=== PATIENT | male | born 1995 | race African-American/Black ===

== ENCOUNTER 2019-10-17 14:22 | Emergency (ER) | payer SELFPAY ==
[~2019-10-17] VITALS: Ht 180 cm; Wt 82.6 kg
[~2019-10-17 14:22] MED LIST: CEPH500C PO; CPR500T PO; NAPR-243 PO; OXYC-12 PO; TRAM50TA2 PO
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
[2019-10-17] MEDS ORDERED: TRM50T PO (16:16)
[2019-10-17] MEDS ORDERED: TETANUS,DIPTH,PERTUSS P/F (BOOSTRIX) 0.5 ML VIAL IM ONE (16:30)
[2019-10-17 16:38] VITALS: BP 130/88
== END 2019-10-17 16:40 | disposition home or self-care (01) ==
LOC: EDUNIT# 14:22 → ER 14:24
DX: S00.83XA Contusion of other part of head, initial encounter (principal); F17.200 Nicotine dependence, unspecified, uncomplicated; Y04.8XXA Assault by other bodily force, initial encounter
CPT/HCPCS: 70486; 90471; 90715

== ENCOUNTER 2020-04-24 06:28 | Emergency (ER) | payer SELFPAY ==
[~2020-04-24] VITALS: Ht 180 cm; Wt 82.6 kg
[~2020-04-24 06:28] MED LIST changes: +TRM50T PO
--- NOTE | 2020-04-24 06:55 | NUR ---
COVID SWAB OBTAINED BY ERP.
--- NOTE | 2020-04-24 07:15 | ED Cough/URI ---
General Chief Complaint: Cough/Cold/Flu Symptoms Stated Complaint: CHILL, COUGH, SOB, FEVER Nursing Triage Note: C/O FEELING "SICK" X3 DAYS REPORTS FEVER, CHILLS, BODYACHE, SORE THROAT. Sepsis Screen: Possible Severe Sepsis Risk Source: patient Exam Limitations: no limitations History of Present Illness Date Seen by Provider: Apr 24, 2020 Time Seen by Provider: 06:55 Initial Comments Here with report of fevers, chills, body aches, sore throat and diarrhea. Overall feeling sick for the last few days and is concerned about COVID-19. Does not have known exposure although does hang out with friends in different places. Not significantly short of breath but is a bit anxious. Timing/Duration: getting worse, other (3 days) Severity/Quality: mild, dry cough Prior Episodes/Possible Cause: no prior episodes Modifying Factors: Improves With Rest Associated Symptoms: dizziness, fever/chills, nasal congestion, shortness of breath, sore throat Allergies and Home Medications Allergies Coded Allergies: No Known Drug Allergies (Unverified , 06/19/13) Patient Home Medication List Home Medication List Reviewed: Yes Review of Systems Review of Systems Constitutional: see HPI, chills, malaise EENTM: see HPI Respiratory: see HPI Cardiovascular: no symptoms reported Gastrointestinal: No abdominal pain; diarrhea Genitourinary: no symptoms reported Musculoskeletal: see HPI, joint pain, muscle pain Skin: no symptoms reported Psychiatric/Neurological: Anxiety, Other (dizziness) Past Yvhlybt-Orseen-Xyjzgr Hx Past Med/Social Hx: Reviewed Nursing Past Med/Soc Hx Patient Social History Alcohol Use: Occasionally Uses Alcohol Beverage of Choice: Beer Recreational Drug Use: Yes Drug of Choice: CANNIBUS Smoking Status: Current Everyday Smoker Type Used: Cigars 2nd Hand Smoke Exposure: Yes Recent Foreign Travel: No Contact w/Someone Who Travel: No Recent Infectious Disease Expo: No Recent Hopitalizations: No Physical Abuse: No Sexual Abuse: No Mistreated: No Fear: No Immunizations Up To Date Tetanus Booster (TDap): More than 5yrs Seasonal Allergies Seasonal Allergies: Yes Past Medical History Surgeries: Yes (cyst on foot, RIGHT ARM) Orthopedic Respiratory: No Cardiac: No Neurological: No Genitourinary: No Gastrointestinal: No Musculoskeletal: No Endocrine: No HEENT: No Cancer: No Psychosocial: No Integumentary: No Blood Disorders: No Family Medical History Reviewed Nursing Family Hx Epil FH: epilepsy 19 FATHER Physical Exam Vital Signs - First Documented Capillary Refill : Less Than 3 Seconds Height: 6'0.00" Weight: 184lbs. 0.0oz. 83.123630na; 25.00 BMI Method:Stated General Appearance: WD/WN, no apparent distress HEENT: PERRL/EOMI, pharyngeal erythema; No tonsillar exudate Neck: full range of motion, supple, normal inspection; No lymphadenopathy (R), No lymphadenopathy (L) Respiratory: lungs clear, normal breath sounds Cardiovascular: no murmur, tachycardia Gastrointestinal: non tender, soft Extremities: normal range of motion, non-tender Neurologic/Psychiatric: alert, oriented x 3 Skin: normal color, warm/dry Progress/Results/Core Measures Suspected Sepsis Recent Fever Within 48 Hours: Yes Infection Criteria Present: Suspected New Infection New/Unexplained Altered Menta: Yes Sepsis Screen: Possible Severe Sepsis Risk SIRS Temperature: Pulse: 118 Respiratory Rate: 18 Blood Pressure 148 /94 Mean: 112 Results/Orders Vital Signs/I&O 04/24/20 04/24/20 06:49 06:49 Temp 36.3 Pulse 118 Resp 18 B/P (MAP) 148/94 (112) Pulse Ox 97 O2 Delivery Room Air Room Air Capillary Refill : Less Than 3 Seconds Blood Pressure Mean: 112 Progress Note : Progress Note Seen and evaluated. Slightly tachycardic and afebrile. History concerning for COVID-19 and we will test for that. This was patient's main concern. He will continue troy-kdz-cmgduoz therapy and so quarantine until results are noted. Discharged home with return precautions. Patient verbalize understanding instructions and agreement with plan. Departure Impression Primary Impression: Upper respiratory infection Qualified Codes: J06.9 - Acute upper respiratory infection, unspecified Additional Impression: COVID-19 evaluation Disposition: 01 HOME, SELF-CARE Condition: Stable Departure-Patient Inst. Decision time for Depature: 07:14 Referrals: NO,LOCAL PHYSICIAN (PCP/Family) Primary Care Physician Patient Instructions: Coronavirus Disease 2019 (COVID-19) (DC) Add. Discharge Instructions: All discharge instructions reviewed with patient and/or family. Voiced understanding. You may take ibuprofen 800 mg every 8 hours as needed for pain. You may also take Tylenol/acetaminophen 1000 mg every 8 hours as needed for pain. Drink plenty of fluids and get plenty of rest. You will need to be quarantined at home until notified of test results. If they are negative then you need to self isolate for 3 days after symptoms resolve. If your test is positive then you will be on quarantined until released by the health department. Return for worse pain, fever, vomiting, weakness, breathing problems or other concerns as needed. NAOMI DAVIDSON MD Apr 24, 2020 07:15
[2020-04-24 07:25] VITALS: BP 148/94
--- NOTE | 2020-04-27 11:12 | NUR ---
PATIENT CALLED [facility] RESULTS TRIED TO CALL HIM BACK WITH NEG RESULTS NO ANSWER NO MESSAGE LEFT.
== END 2020-04-24 07:25 | disposition home or self-care (01) ==
LOC: EDUNIT# 06:28 → ER 06:30
DX: J06.9 Acute upper respiratory infection, unspecified (principal); F17.290 Nicotine dependence, other tobacco product, uncomplicated; Z20.828 Contact with and (suspected) exposure to other viral communicable diseases
CPT/HCPCS: 99282; U0002; 87635

== ENCOUNTER 2021-06-17 00:47 | Emergency (ER) | payer SELFPAY ==
[2021-06-17] MEDS ORDERED: TETANUS,DIPTH,PERTUSS P/F (BOOSTRIX) 0.5 ML VIAL IM ONE (01:30)
[2021-06-17] MEDS ORDERED: RX-NAPROXEN (NAPROSYN) 250 MG TAB PPK#4 PO STA (02:26)
[2021-06-17] MEDS ORDERED: MUPI22OI2 TP (02:31)
--- NOTE | 2021-06-17 02:31 | ED Upper Extremity ---
General Chief Complaint: Upper Extremity Stated Complaint: LEFT HAND INJURY Allergies and Home Medications Allergies Coded Allergies: No Known Drug Allergies (Unverified , 06/19/13) Past Tsyupyf-Xnqfuc-Lkcldk Hx Immunizations Up To Date Tetanus Booster (TDap): More than 5yrs Seasonal Allergies Seasonal Allergies: Yes Past Medical History Surgeries: Yes (cyst on foot, RIGHT ARM) Orthopedic Respiratory: No Cardiac: No Neurological: No Genitourinary: No Gastrointestinal: No Musculoskeletal: No Endocrine: No HEENT: No Cancer: No Psychosocial: No Integumentary: No Blood Disorders: No Family Medical History Epil FH: epilepsy 19 FATHER Physical Exam Vital Signs Capillary Refill : Height, Weight, BMI Height: 6'0.00" Weight: 184lbs. 0.0oz. 83.874893kh; 25.00 BMI Method:Stated Progress/Results/Core Measures Results/Orders My Orders Orders - LEOBARDO PORTER DO Finger(S) (06/17/21 01:24) Dipht,Pertuss(Acell),Tet Adult (Boostrix (06/17/21 01:30) Rx-Naproxen (Rx-Naprosyn) (06/17/21 02:26) Medications Given in ED Current Medications Medications Dose Ordered Sig/Flori Route Start Time Stop Time Status Last Admin Dose Admin Diphtheria/ Tetanus/Acell Pertussis 0.5 ml ONCE ONCE IM 06/17/21 01:30 06/17/21 01:31 DC 06/17/21 01:34 0.5 ML Departure Impression Primary Impression: abrasions of middle finger of left hand Additional Impressions: Contusion of left middle finger Blzvlrrfca-moinsmoaz-jxsiere (DPT) vaccination administered at current visit Disposition: HOME, SELF-CARE Condition: Stable Departure-Patient Inst. Decision time for Depature: 02:15 Referrals: NO,LOCAL PHYSICIAN (PCP/Family) Primary Care Physician Patient Instructions: Contusion (DC), Skin Abrasions (DC) Add. Discharge Instructions: CLEAN WOUND TWICE A DAY WITH ANTIBACTERIAL SOAP AND WATER, APPLY ANTIBIOTIC OINTMENT AND FRESH DRESSING TWICE A DAY TYLENOL AND MOTRIN NEEDED FOR PAIN FOLLOW UP WITH DR OF CHOICE IN 1 WEEK IF NO BETTER All discharge instructions reviewed with patient and/or family. Voiced understanding. Scripts Mupirocin (Mupirocin) 22 Gm Oint...g. 22 GM TP BID, #1 TUBE Prov: LEOBARDO PORTER DO 06/17/21 LEOBARDO PORTER DO Jun 17, 2021 02:31
[2021-06-17 02:47] VITALS: BP 128/72
--- NOTE | 2021-06-17 07:52 | Diagnostic Imaging Report ---
INDICATION: Pain, laceration. EXAMINATION: Left fingers 06/17/2021 FINDINGS: Examination is somewhat limited due to motion. There is a tiny hyperdensity which appears to lie underneath the nailbed. No other radiopaque foreign bodies appreciated. There is a hyperdensity overlying the nailbed superficially, perhaps gauze material, correlate clinically. No fractures or dislocations. IMPRESSION: 1. Tiny hyperdensity which appears to lie underneath the nailbed. No underlying fracture or dislocation. 2. Other findings, as above. Dictated by: Dictated on workstation # [id number]
== END 2021-06-17 02:47 | disposition home or self-care (01) ==
LOC: EDUNIT# 00:47 → ER 00:50
DX: S60.032A Contusion of left middle finger without damage to nail, initial encounter (principal); Z23 Encounter for immunization; X58.XXXA Exposure to other specified factors, initial encounter
CPT/HCPCS: 73140; 90471; 90715